=== PATIENT | female | born 1985 | race Caucasian/White ===

== ENCOUNTER 2019-03-01 22:40 | Inpatient (IN) | payer OTHER ==
[2019-03-02 01:04] LABS: BASO % 0.3 % (0-2.0); HEMATOCRIT 33.1 % (32.4-45.2); HEMOGLOBIN 10.8 GM/dL (10.7-15.3); LYMPH % 10.5 % (8-40); MCH 26.5 pg (25.7-33.7); MCHC 32.5 g/dl (32.0-36.0); MEAN CELL VOLUME 81.4 fl (80-96); MEAN PLT VOLUME 8.5 fl (7.5-11.1); MONO % 4.4 % (3.8-10.2); NEUT % 84.8 % (42.8-82.8); PLATELET COUNT 308 K/MM3 (134-434); RBC 4.07 M/mm3 (3.60-5.2); RDW 14.4 % (11.6-15.6); WHITE BLOOD COUNT 14.9 K/mm3 (4.0-10.0)
[2019-03-02 01:12] LABS: INR 1.03 (0.83-1.09); PROTHROMBIN TIME (PATIENT) 12.1 SEC (9.7-13.0)
[2019-03-02 01:14] LABS: ACTIVATED PTT 29.3 SECONDS (25.2-36.5)
[2019-03-02 01:18] LABS: BLOOD UREA NITROGEN 13.5 mg/dL (7-18); CALCIUM 8.6 mg/dL (8.5-10.1); CREATININE 0.5 mg/dL (0.55-1.3); POTASSIUM 3.9 mmol/L (3.5-5.1)
--- NOTE | 2019-03-02 01:48 | HP ---
Past Medical History - Admission Chief Complaint: Uterine Contractions History of Present Illness: 33yo @ 39.4wks by jayna, FRANCES 02/27/19 here with contractions No VB. No LOF. +Ctx q3-4 mins. +FM Initially 3-4cm on presentation, rechecked 2 hours later, then 4-5cm. Admitted then. PNC @ [address] H/O +PPD, CXR neg 2005; no QFT from this available. 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: No: Alzheimer's, CVA, Dementia, Migraine, Multiple Sclerosis, Peripheral Neuropathy, Parkinson's, Seizure, Syncope, TIA, Vertigo, Other Cardiovascular: No: AFIB, Aneurysm, Aortic Insufficiency, Aortic Stenosis, CAD, CHF, Deep Vein Thrombosis, HTN, Hyperlipdemia, NH, Mitral Insufficiency, Mitral Stenosis, Murmur, Pulmonary Hypertension, Other Gastrointestinal: No: Ascites, Cancer, Constipation, Crohn's Disease, Diverticulitis, Diverticulosis, Esophageal Varices, Gastritis, GERD, GI Bleed, Hemorrhoids, Hiatal Hernia, Inflamatory Bowel Disease, Irritable Bowel Disease, Pancreatitis, Peptic Ulcer Disease, Ulcerative Colitis, Other Hepatobiliary: No: Cirrhosis, Cholelithiasis, Cholecystitis, Choledocholithiasis , Hepatitis A, Hepatitis B, Hepatitis C, Other Renal/: No: Renal Failure, Renal Inusuff, BPH, Cancer, Hematuria, Hemodialysis , Neurogenic Bladder, Renal Calculi, UTI, Other ...: 4 ...Para: 2 ...Term: 2 ...: 0 ...Spon : 1 ...Induced : 0 ...LMP: 05/16/18 ... Weeks Gestation by Dates: 41.2 ...EDC by Dates: 02/20/19 ...EDC by Sono: 02/27/19 Heme/Onc: Yes: Anemia Infectious Disease: No: AIDS, C-Diff, Herpes Zoster, HIV, MRSA, STD's, Tuberculosis, VREF, Other Psych: No: Addictions, Anxiety, Bipolar, Depression, Panic, Psychosis, Schizophrenia, Other Musculoskeletal: No: Bursitis, Chronic low back pain, Hemiparesis, Hemiplegia, Osteoarthritis, Paraplegia, Other Endocrine: No: Trevin's Disease, Emmanuel's Disease, Diabetes Insipidus, Diabetes Mellitus, Hyperparathyroidism, Hyperthyroidism, Hypothyroidism, Osteopenia, SIADH, Other - Past Surgical History Past Surgical History: Yes: None Hx Myomectomy: No Hx Transabdominal Cerclage: No - Smoking History Smoking history: Never smoked Have you smoked in the past 12 months: No Aproximately how many cigarettes per day: 0 - Alcohol/Substance Use Hx Alcohol Use: No - Social History Usual Living Arrangement: Yes: Alone History of Recent Travel: No Home Medications - Allergies Allergies/Adverse Reactions: Allergies Allergy/AdvReac Type Severity Reaction Status Date / Time Penicillins Allergy Mild Rash Verified 03/02/19 03:06 - Home Medications Home Medications: Ambulatory Orders Vitamins (Sjr) - 1 tab PO DAILY 03/02/19 Review of Systems - Review of Systems Constitutional: denies: No Symptoms, Chills, Diaphoresis, Fever, Lethargy, Loss of Appetite, Malaise, Night Sweats, Unintentional Wgt. Loss, Weakness, Other Cardiovascular: denies: No Symptoms, Chest Pain, Edema, Palpitations, Shortness of Breath, Other Respiratory: denies: No Symptoms, Cough, Exercise Intolerance, Hemoptysis, Orthopnea, PND, Snoring, SOB, SOB on Exertion, Wheezing, Other Gastrointestinal: denies: No Symptoms, Abdominal Pain, Bloating, Constipation, Diarrhea, Dysphagia, Indigestion, Melena, Nausea, Rectal Bleeding, Vomiting, Vomiting Blood, Other Physical Exam - Maternity Constitutional: Yes: Well Nourished, No Distress, Calm - Abdominal Exam/OB Number of Fetuses: Single Presentation: Vertex Contractions: Yes Regularity: Regular Intensity: Mild/Mod Monitor Mode: External Heart Rate Location: [facility] Category: I Accelerations: Non-Uniform Decelerations: None - Vaginal Exam/OB Vaginal Bleediing: No Speculum Exam: No Dilatation (cm): 4-5 Effacement (%): 100 Amniotic Membrane Status: Intact Presentation: Double Footling Breech Station: -3 - Physical Exam Edema: No - Labs Lab Results: CBC, BMP 03/02/19 00:31 03/02/19 00:31 Assessment/Plan 33yo [id number] @ 39.4wks here in labor Admit to L&D Cat 1 tracing Epidural prn AROM prn Anticipate Anderson Jarrett
[2019-03-02] MEDS ORDERED: DEXTROSE 5%-LACTATED RINGERS 1,000 ML IV SCH (02:00)
[2019-03-02 03:32] VITALS: BMI 28.9
[2019-03-02] MEDS ORDERED: OXYTOCIN 20 UNITS in 0.9% NS 20 UNIT/1,000 ML INFUS.BAG IV ONE ×2 (03:36→06:35)
--- NOTE | 2019-03-02 03:41 | PN ---
Progress Note, Labor Vaginal Exam #1 Labor Exam Date: 03/02/19 Labor Exam Time: 03:40 Heart Rate (range): Cat I Dilatation: 8 Effacement (%): 100 Amniotic Membrane Status: Ruptured Presentation: Vertex/Position Station: -1 Remarks: AROM, light meconium Cat I tracing Declined epidural Anticipate MARIA DEL ROSARIO Jarrett MD
[2019-03-02] MEDS ORDERED: ACETAMINOPHEN 325 MG TABLET (FP) ONE (05:19)
[2019-03-02] MEDS ORDERED: IBUPROFEN 600 MG TABLET (FP) PO ONE (05:20)
--- NOTE | 2019-03-02 05:24 | PN ---
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 No anesthesia. 39 week . Spontaneous delivery of anterior shoulder and body. Infant placed on maternal abdomen. No nuchal. Light meconium. Cord clamped and cut. Weight pending. Apgars 8/9. Spontaneous delivery of intact placenta with 3VC. Fundus firm. Perineum inspected, superficial midline laceration, not bleeding, not repaired. EBL 250ml.
[2019-03-02] MEDS: ACETAMINOPHEN 325 MG TABLET (FP) PO PRN ×3 (05:30→17:25)
[2019-03-02] MEDS: IBUPROFEN 600 MG TABLET (FP) PO PRN ×3 (05:30→17:24)
[2019-03-02] MEDS ORDERED: METHYLERGONOVINE MALEATE 0.2 MG/1 ML AMP IM PRN (05:34)
[2019-03-02] MEDS ORDERED: BENZOCAINE 28 GM HEMORRHOIDAL OINTMENT TP PRN (05:34)
[2019-03-02] MEDS ORDERED: BENZOCAINE 20% 57 GM BOTTLE TP PRN (05:34)
[2019-03-02] MEDS ORDERED: BISACODYL 10 MG SUPP.RECT RC PRN (05:34)
[2019-03-02] MEDS ORDERED: WITCH HAZEL 50% (TUCKS) 40 PAD/JAR PAD TP PRN (05:34)
[2019-03-02] MEDS ORDERED: OXYTOCIN 20 UNITS in 0.9% NS 20 UNIT/1,000 ML INFUS.BAG IV SCH (05:45)
[2019-03-02] MEDS: FERROUS SO4 325 MG TABLET (FP) PO SCH ×3 (08:25→17:26)
[2019-03-02] MEDS: PRENATAL VITAMINS W/ FOLIC ACID TABLET (FP) PO SCH (09:00)
[2019-03-03] MEDS: ACETAMINOPHEN 325 MG TABLET (FP) PO PRN ×2 (05:06→19:56)
[2019-03-03] MEDS: IBUPROFEN 600 MG TABLET (FP) PO PRN ×2 (05:06→19:56)
--- NOTE | 2019-03-03 08:14 | PN ---
Progress Note (short form) - Note Progress Note: ppd 1 doing well, no c/o , no excess vaginal bleeding Last Vital Signs Temp Pulse Resp BP Pulse Ox 98.0 F 81 20 102/50 L 03/03/19 05:10 03/03/19 05:10 03/03/19 05:10 03/03/19 05:10 CBC, BMP 03/02/19 00:31 abdomen soft, no distension , no cva uteus firm lochia mild plan cbc, ambulate, d/c home in am
[2019-03-03 08:31] LABS: BASO % 0.2 % (0-2.0); EOS % 0.6 % (0-4.5); HEMATOCRIT 20.4 % (32.4-45.2); MCH 26.9 pg (25.7-33.7); MCHC 32.9 g/dl (32.0-36.0); MEAN CELL VOLUME 81.6 fl (80-96); MEAN PLT VOLUME 8.4 fl (7.5-11.1); MONO % 5.9 % (3.8-10.2); NEUT % 74.3 % (42.8-82.8); PLATELET COUNT 256 K/MM3 (134-434); RDW 14.6 % (11.6-15.6); WHITE BLOOD COUNT 12.1 K/mm3 (4.0-10.0)
[2019-03-03] MEDS: FERROUS SO4 325 MG TABLET (FP) PO SCH ×3 (09:05→17:35)
[2019-03-03] MEDS: PRENATAL VITAMINS W/ FOLIC ACID TABLET (FP) PO SCH (09:05)
[2019-03-03 10:28] LABS: HEMOGLOBIN 6.7 GM/dL (10.7-15.3)
[2019-03-03 16:39] LABS: BASO % 0.2 % (0-2.0); EOS % 0.3 % (0-4.5); HEMATOCRIT 19.8 % (32.4-45.2); LYMPH % 20.5 % (8-40); MCH 27.1 pg (25.7-33.7); MEAN PLT VOLUME 8.2 fl (7.5-11.1); MONO % 5.3 % (3.8-10.2); NEUT % 73.7 % (42.8-82.8); RBC 2.42 M/mm3 (3.60-5.2); RDW 14.5 % (11.6-15.6); WHITE BLOOD COUNT 12.6 K/mm3 (4.0-10.0)
[2019-03-03 17:20] LABS: HEMOGLOBIN 6.5 GM/dL (10.7-15.3)
[2019-03-03 18:18] LABS: PLATELET COUNT 267 K/MM3 (134-434)
[2019-03-03] MEDS ORDERED: SENNOSIDES/DOCUSATE COMBO (SENNA PLUS) TABLET (UD) PO PRN (22:00)
--- NOTE | 2019-03-04 07:02 | PN ---
Progress Note (short form) - Note Progress Note: ppd 2 ,anemia no dizziness or headache, voids ok, ambulating, no excess vaginal bleeding CBC, BMP 03/03/19 15:15 03/02/19 00:31 Last Vital Signs Temp Pulse Resp BP Pulse Ox 98.6 F 77 18 90/50 L 03/03/19 20:51 03/03/19 20:51 03/03/19 20:51 03/03/19 20:51 abdomen soft, non tender, no cva uterus firm non tender lochia minimal. no calf pain impression anemia , asymptomatic, normal pulse . blood transfusion discussed .declined plan repeat cbc , if no decrease in Hb/Hct d/c home on iron, vit follow up in clinic
--- NOTE | 2019-03-04 07:05 | DS ---
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: Vital Signs Temperature 98.6 F 03/03/19 20:51 Pulse Rate 77 03/03/19 20:51 Respiratory Rate 18 03/03/19 20:51 Blood Pressure 90/50 L 03/03/19 20:51 O2 Sat by Pulse Oximetry (%) Constitutional: Yes: Well Nourished, No Distress, Calm Eyes: Yes: WNL, Conjunctiva Clear, EOM Intact HENT: Yes: WNL, Atraumatic, Normocephalic Neck: Yes: WNL, Supple, Trachea Midline Cardiovascular: Yes: WNL, Regular Rate and Rhythm Respiratory: Yes: WNL, Regular, CTA Bilaterally Gastrointestinal: Yes: WNL ...Rectal Exam: Yes: WNL Renal/: Yes: WNL ....Post : Yes: Uterus firm, Uterus non-tender, Slight lochia rubra Breast(s): Yes: WNL Musculoskeletal: Yes: WNL Extremities: Yes: WNL Edema: No Integumentary: Yes: WNL Neurological: Yes: WNL, Alert, Oriented ...Motor Strength: WNL Psychiatric: Yes: WNL, Alert, Oriented Labs: CBC, BMP 03/03/19 15:15 03/02/19 00:31 Delivery - Delivery Vaginal Delivery: Spontaneous Type of Anesthesia: None Episiotomy/Laceration: Midline EBL (cc): 250 Delivery, Single - Stages of Labor Date 1st Stage Initiatied: 03/01/19 Time 1st Stage Initiated: 16:00 Date 2nd Stage Initiated: 03/02/19 Time 2nd Stage Initiated: 04:30 Date of Delivery: 03/02/19 Time of Delivery: 05:01 Time Placenta Delivered: 05:15 Placenta: Yes: Spontaneous - Condition of Infant 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 Present: No Infant Gender: Female Weight: 8 lb 2 oz Position: Left, OA Total Hours ROM (Hrs/Mins): 31m - 1 Minute Total Score: 8 5 Minutes Total Score: 9 - [place] Feeding Plan Initial Plan: Elected not to breastfeed exclusively throughout hospitalization Discharge Summary Reason For Visit: ADMIT LABOR Procedures: Principal: Hospital Course: anemia Condition: Stable - Instructions Diet, Activity, Other Instructions: Regular Diet Referrals: Fadia Jarrett MD [Staff Physician] - Disposition: HOME - Home Medications Comprehensive Discharge Medication List: Ambulatory Orders Vitamins (Sjr) - 1 tab PO DAILY 03/02/19 Ibuprofen 600 mg PO Q6H PRN #30 tablet 03/03/19 Ferrous Sulfate 325 mg PO BID #90 tablet 03/04/19
[2019-03-04] MEDS: IBUPROFEN 600 MG TABLET (FP) PO PRN (07:36)
[2019-03-04] MEDS: ACETAMINOPHEN 325 MG TABLET (FP) PO PRN (07:37)
[2019-03-04] MEDS: FERROUS SO4 325 MG TABLET (FP) PO SCH ×2 (07:38→11:55)
[2019-03-04 08:11] LABS: BASO % 0.3 % (0-2.0); EOS % 0.7 % (0-4.5); HEMATOCRIT 22.2 % (32.4-45.2); HEMOGLOBIN 7.5 GM/dL (10.7-15.3); LYMPH % 24.3 % (8-40); MCH 27.6 pg (25.7-33.7); MCHC 33.8 g/dl (32.0-36.0); MEAN CELL VOLUME 81.6 fl (80-96); MEAN PLT VOLUME 8.3 fl (7.5-11.1); MONO % 5.7 % (3.8-10.2); PLATELET COUNT 282 K/MM3 (134-434); RBC 2.72 M/mm3 (3.60-5.2); RDW 14.5 % (11.6-15.6); WHITE BLOOD COUNT 11.6 K/mm3 (4.0-10.0)
[2019-03-04 08:34] VITALS: BP 100/70; PULSE 71; TEMP 99
[2019-03-04] MEDS: PRENATAL VITAMINS W/ FOLIC ACID TABLET (FP) PO SCH (09:09)
== END 2019-03-04 12:15 | disposition home or self-care (01) | DRG 560 ==
LOC: JDEL 22:40 → JLDR 03-02 01:30 → J3W 03-02 09:17
PROVIDERS: ADMIT Obstetrics & Gynecology; ATTEND Obstetrics & Gynecology
PROC: 10E0XZZ Delivery of Products of Conception, External Approach (ICD-10-PCS; principal; 2019-03-02)
PROC: 0W8NXZZ Division of Female Perineum, External Approach (ICD-10-PCS; 2019-03-02)
DX: O99.02 Anemia complicating childbirth (principal); D64.9 Anemia, unspecified; Z3A.39 39 weeks gestation of pregnancy; Z37.0 Single live birth
CPT/HCPCS: 36415; 59409; 71046-TC-FY; 80048; 85025; 85610; 85730; 86593; 86850; 86900; 86901